=== PATIENT | male | born 1940 | race Caucasian/White ===

== ENCOUNTER 2016-08-02 07:57 | Day surgery (SDC) | payer BC, MEDICARE ==
[2016-07-30 10:43] LABS: BLOOD UREA NITROGEN 22 mg/dL (7-18)
[2016-07-30 10:46] LABS: ASPARTATE AMINO TRANSFERASE 20 U/L (15-37)
[~2016-08-02] VITALS: Ht 185.4 cm; Wt 102.0 kg
[~2016-08-02 07:57] MED LIST: ASPI-515 PO; BUPIVACAINE/PF-EPI 0.5% 1:200K ONE; CHOL10003 PO; HYDR-3240 PO; LISI40TA PO; METO-93 PO; MULT1TAB13 PO; OMEG1CAP12 PO
[2016-08-02 08:54] VITALS: BP 147/102
[2016-08-02] MEDS ORDERED: LACTATED RINGERS 1,000 ML IV SCH (08:57)
[2016-08-02] MEDS ORDERED: OMEG1CAP12 PO (08:58)
[2016-08-02] MEDS ORDERED: LIDOCAINE 1%, 2ML SQ PRN (09:00)
[2016-08-02] MEDS ORDERED: FENTANYL PF 100 MCG/2ML ONE (10:14)
[2016-08-02] MEDS ORDERED: METOPROLOL 1 MG/ML, 5ML ONE (10:19)
[2016-08-02] MEDS ORDERED: ONDANSETRON 2MG/ML, 2ML ONE (10:19)
[2016-08-02] MEDS ORDERED: PROPOFOL 10 MG/ML, 20ML ONE (10:19)
[2016-08-02] MEDS ORDERED: CEFAZOLIN 1,000 MG ONE (10:19)
[2016-08-02] MEDS ORDERED: BUPIVACAINE/PF-EPI 0.5% 1:200K INFIL ONE (10:40)
[2016-08-02] MEDS ORDERED: FENTANYL PF 100 MCG/2ML IV PRN (11:00)
[2016-08-02] MEDS ORDERED: LABETALOL 5MG/ML, 20ML IV PRN (11:00)
[2016-08-02] MEDS ORDERED: hydrALAzine 20 MG/ML, 1ML IV PRN (11:00)
[2016-08-02] MEDS ORDERED: HYDROmorphone 1 MG/ML, 1ML IV PRN (11:00)
[2016-08-02] MEDS ORDERED: ONDANSETRON 2MG/ML, 2ML IVPush PRN (11:00)
[2016-08-02] MEDS ORDERED: ACETAMINOPHEN 325 MG TABLET PO PRN (11:00)
[2016-08-02] MEDS ORDERED: OXYcodone 5 MG/5 ML ORAL.SOL UDC PO PRN (11:00)
[2016-08-02] MEDS ORDERED: KETOROLAC 30 MG/1 ML IVPush STA (11:24)
[2016-08-02] MEDS ORDERED: KETOROLAC 30 MG/1 ML ONE (11:26)
== END 2016-08-02 13:00 | disposition home or self-care (01) ==
LOC: OUT 07:57 → MERGE 10:00 → OUT 13:00
PROVIDERS: ATTEND Surgery
DX: L72.0 Epidermal cyst (principal); I10 Essential (primary) hypertension; Z88.8 Allergy status to other drugs, medicaments and biological substances; Z72.89 Other problems related to lifestyle; Z85.72 Personal history of non-Hodgkin lymphomas
CPT/HCPCS: 11402; 36415; 80053; 88304; 93005; J0690; J1885; J2405; J2704; J3010; J3490; J7120